=== PATIENT | female | born 2000 | race Two or more races ===

== ENCOUNTER 2023-04-27 08:47 | Emergency (ER) | payer OTHER ==
[~2023-04-27] VITALS: Ht 152.4 cm; Wt 47.6 kg
[2023-04-27] MEDS ORDERED: PRENA1 TRUE CO1 EACH PO (09:01)
== END 2023-04-27 11:51 | disposition home or self-care (01) ==
LOC: ER 08:47
PROVIDERS: Emergency Medicine
DX: O26.891 Other specified pregnancy related conditions, first trimester (principal); R11.10 Vomiting, unspecified; Z3A.01 Less than 8 weeks gestation of pregnancy

== ENCOUNTER 2023-07-01 00:10 | Emergency (ER) | payer OTHER ==
[~2023-07-01] VITALS: Ht 152.4 cm; Wt 49.0 kg
[~2023-07-01 00:10] MED LIST: PRENA1 TRUE CO1 EACH PO
== END 2023-07-01 04:54 | disposition home or self-care (01) ==
LOC: ER 00:10
DX: O26.892 Other specified pregnancy related conditions, second trimester (principal); Z3A.16 16 weeks gestation of pregnancy; R10.2 Pelvic and perineal pain

== ENCOUNTER 2023-07-12 00:35 | Emergency (ER) | payer OTHER ==
[~2023-07-12] VITALS: Ht 152.4 cm; Wt 45.8 kg
[2023-07-12 01:23] LABS: HEMATOCRIT 34.1 % (36.0-45.00); HEMOGLOBIN 11.5 g/dL (12.0-15.00); MEAN CORPUSCULAR HEMOGLOBIN 30.2 pg (27.00-32.0); MEAN CORPUSCULAR HGB CONC 33.6 g/dl (32.0-36.0); PLATELET COUNT 202 K/uL (150-450); RED BLOOD COUNT 3.79 M/uL (4.00-6.00); RED CELL DISTRIBUTION WIDTH 12.6 % (11.5-14.5)
[2023-07-12 01:31] LABS: PH,URINE 7.5 (5.0-8.0); URINE APPEARANCE Clear; URINE BILIRRUBIN Negative (NEGATIVE); URINE BLOOD Negative; URINE COLOR Yellow; URINE GLUCOSE Negative (NEGATIVE); URINE LEUKOCYTE Small; URINE NITRATE Negative; URINE PROTEIN Trace (NEGATIVE)
[2023-07-12 01:35] LABS: URINE EPITHELIAL CELLS 70.1 uL (0.0-38.8); URINE RBC 5.4 uL (0.0-20.8); URINE WBC 36.9 uL (0.0-23.2)
[2023-07-12 02:03] LABS: CALCIUM 8.7 mg/dL (8.5-10.1); CREATININE SERUM 0.63 mg/dL (0.55-1.02); GFR 119.29; POTASSIUM 3.37 mEq/L (3.5-5.1)
== END 2023-07-12 12:29 | disposition home or self-care (01) ==
LOC: ER 00:35
PROVIDERS: General Practice
DX: O99.612 Diseases of the digestive system complicating pregnancy, second trimester (principal); K92.89 Other specified diseases of the digestive system; K52.89 Other specified noninfective gastroenteritis and colitis; Z3A.16 16 weeks gestation of pregnancy

== ENCOUNTER 2024-05-06 18:55 | Emergency (ER) | payer OTHER ==
[~2024-05-06] VITALS: Ht 152.4 cm; Wt 49.0 kg
[2024-05-06] MEDS ORDERED: 0.9 % SODIUM CHLORIDE 1,000 ML IV STA (19:20)
[2024-05-06 20:00] LABS: HEMATOCRIT 36.3 % (36.0-45.00); HEMOGLOBIN 12.1 g/dL (12.0-15.00); MEAN CORPUSCULAR HEMOGLOBIN 28.7 pg (27.00-32.0); MEAN CORPUSCULAR HGB CONC 33.4 g/dl (32.0-36.0); PLATELET COUNT 304 K/uL (150-450); RED BLOOD COUNT 4.22 M/uL (4.00-6.00); RED CELL DISTRIBUTION WIDTH 15.9 % (11.5-14.5)
[2024-05-06] MEDS ORDERED: ACETAMINOPHEN 500 MG GEL..CAP PO ONE (23:19)
== END 2024-05-07 00:03 | disposition home or self-care (01) ==
LOC: ER 18:56
PROVIDERS: Emergency Medicine
DX: O20.8 Other hemorrhage in early pregnancy (principal)
CPT/HCPCS: 36415; 76817; 96365; 96366; 99284; J7030